=== PATIENT | male | born 1965 | race African-American/Black ===

== ENCOUNTER 2019-05-12 13:42 | Emergency (ER) | payer SELFPAY ==
[~2019-05-12] VITALS: Ht 170.2 cm; Wt 59.1 kg
[2019-05-12] MEDS ORDERED: GLIP5 PO (14:16)
[2019-05-12] MEDS ORDERED: BICT1TAB PO (14:16)
[2019-05-12] MEDS ORDERED: METF-960 PO (14:16)
[2019-05-12] MEDS ORDERED: ALBU8HFA IH (14:17)
[2019-05-12 14:20] LABS: GLUCOSE,POINT OF CARE 196 MG/DL (70-110)
[2019-05-12 17:23] VITALS: BP 118/70
== END 2019-05-12 17:30 | disposition home or self-care (01) ==
LOC: EMS 13:44
DX: B00.9 Herpesviral infection, unspecified (principal); E11.9 Type 2 diabetes mellitus without complications; J45.909 Unspecified asthma, uncomplicated; F17.210 Nicotine dependence, cigarettes, uncomplicated; F12.90 Cannabis use, unspecified, uncomplicated; Z98.890 Other specified postprocedural states; Z79.899 Other long term (current) drug therapy; Z88.2 Allergy status to sulfonamides
CPT/HCPCS: 99406

== ENCOUNTER 2023-06-04 16:37 | Emergency (ER) | payer OTHER ==
[~2023-06-04] VITALS: Ht 180.3 cm; Wt 77.3 kg
[~2023-06-04 16:37] MED LIST: ALBU18HF12 IH; BICT1TAB PO; GLIP5TAB16 PO; METF-1211 PO
[2023-06-04 19:20] VITALS: BP 118/70; PULSE 84; RESP 18; TEMP 97.8
[2023-06-04 19:25] LABS: BASOPHILS % (AUTO) 0.4 % (0.0-2.0); EOSINOPHILS % (AUTO) 2.6 % (1.0-6.0); HEMATOCRIT 39.6 % (41-53); HEMOGLOBIN 13.8 g/dL (13.5-17.5); LYMPHOCYTES # (AUTO) 1.2 K/uL (1.0-4.8); MEAN CORPUSCULAR HEMOGLOBIN 30.9 pg (26.0-34.0); MEAN CORPUSCULAR HGB CONC 34.9 G/dL (31.0-37.0); MEAN CORPUSCULAR VOLUME 89 fL (80-100); MONOCYTES # (AUTO) 0.6 K/uL (0.1-1.0); NEUTROPHILS # (AUTO) 5.9 K/uL (1.8-7.7); PLATELET COUNT (AUTO) 148 K/uL (150-450); RED BLOOD CELL COUNT(AUTO) 4.47 MIL/uL (4.50-5.90); RED CELL DISTRIBUTION WIDTH 13.6 % (11.5-14.5)
[2023-06-04 19:35] LABS: ANION GAP 7 mmol/L (8-16); CALCIUM, TOTAL 8.5 mg/dL (8.8-10.5); CARBON DIOXIDE 27 mmol/L (22-29); CHLORIDE 102 mmol/L (98-107); CREATININE 1.43 mg/dL (0.60-1.30); GLOMERULAR FILTR. RATE CALC > 60 mL/min (>60); GLUCOSE,RANDOM 163 mg/dL (70-110); POTASSIUM 3.8 mmol/L (3.5-5.1); SODIUM SERUM 136 mmol/L (136-145); UREA NITROGEN, BLOOD 20 mg/dL (7-18)
[2023-06-04 19:41] LABS: ALANINE AMINOTRANSFERASE 47 U/L (12-78); ALBUMIN 3.6 g/dL (3.4-5.0); ALKALINE PHOSPHATASE 124 U/L (46-116); ASPARTATE AMINOTRANSFERASE 29 U/L (15-37); BILIRUBIN,TOTAL 0.9 mg/dL (0.1-1.0); TOTAL PROTEIN, SERUM 7.9 g/dL (6.4-8.2); TROPONIN I-HIGH SENSITIVITY 6 ng/L (<76)
[2023-06-04 19:44] LABS: LACTIC ACID 0.9 mmol/L (0.4-2.0)
== END 2023-06-04 20:40 | disposition home or self-care (01) ==
LOC: EMS 16:42
DX: T25.221A Burn of second degree of right foot, initial encounter (principal); J45.909 Unspecified asthma, uncomplicated; E11.9 Type 2 diabetes mellitus without complications; Z87.891 Personal history of nicotine dependence; Z88.2 Allergy status to sulfonamides
CPT/HCPCS: 80053; 82962; 83605; 84484; 85025; 87040; 99283